=== PATIENT | female | born 1950 | race Caucasian/White ===

== ENCOUNTER 2016-12-30 10:53 | Emergency (ER) | payer OTHER ==
[~2016-12-30] VITALS: Ht 165.1 cm; Wt 63.5 kg
[~2016-12-30 10:53] MED LIST: AMBIEN 10 MG TA10 MG PO; ASPIRIN325 PO; CALCIUM 600 +1 EAC1 PO; DESYREL50 MG PO; HYDROCODON-ACE1 EAC8 PO; HYDROCODONE-AP1 EAC6 PO; LIDODERM 5%1 PATC1 TOP; LORTAB 7.5/5001 TA1 PO; MEDROLDOSEPACK PO; MUCINEX TA600 MG/TA2 PO; NEURONTIN 300300 M1 PO; NORCO 10-325 T1 EACH PO; NORCO 5-325 TA1 EACH PO; OMEPRAZOLE 20 M20 M1 PO; PAXIL10 MG; PAXIL10 MG PO; PAXIL20 MG PO; PERCOCET 5-3251 EACH PO; PREDNISONE 20 M20 MG PO; PREDNISONE50 MG PO; PROMETHAZINE-C120 ML PO; PROVENTIL HFA6.7 G1 INH; TRAZODONE HCL100 MG PO; VENTOLIN HFA 1818 GM INH; VITAMIN D1000 UNI1 PO; XANAX XR2 MG PO; XANAX1 MG PO; ZOVIRAX400 MG PO; ZPAK PO
[2016-12-30] MEDS ORDERED: HYDROCODONE-APA1 TA1 PO (14:23)
== END 2016-12-30 15:08 | disposition home or self-care (01) ==
LOC: ER 10:53
DX: S52.512A Displaced fracture of left radial styloid process, initial encounter for closed fracture (principal); S52.612A Displaced fracture of left ulna styloid process, initial encounter for closed fracture; F32.9 Major depressive disorder, single episode, unspecified; F17.210 Nicotine dependence, cigarettes, uncomplicated; F10.99 Alcohol use, unspecified with unspecified alcohol-induced disorder; F43.10 Post-traumatic stress disorder, unspecified; Z98.890 Other specified postprocedural states; Z88.5 Allergy status to narcotic agent; Z88.6 Allergy status to analgesic agent; W01.0XXA Fall on same level from slipping, tripping and stumbling without subsequent striking against object, initial encounter; Y93.89 Activity, other specified; Y92.89 Other specified places as the place of occurrence of the external cause; Y99.0 Civilian activity done for income or pay